=== PATIENT | male | born 1995 | race Caucasian/White ===

== ENCOUNTER 2017-12-20 11:33 | Emergency (ER) | payer MEDICAID ==
[2017-12-20 11:43] VITALS: BP 127/70
--- NOTE | 2017-12-20 12:19 | ED Physician Documentation ---
PD HPI ABD PAIN - Stated complaint Stated Complaint: TOOTH/GUM PX, STOMACH PX - Chief complaint Chief Complaint: Abd Pain - History obtained from History obtained from: Patient - History of Present Illness Timing - onset: Other (This is a young man who just moved up from [place] to be in homeless care home for youth with multiple complaints. First and foremost all of his teeth hurt, this is not new. He is trying to get in with the dentist. Secondly he just got out of a psychiatric facility and his prescription for gabapentin, 300 mg twice daily for anxiety with stolen. Third for the last week or so he has had on and off epigastric pain that is worse in the morning without vomiting or diarrhea, he has been constipated.) Review of Systems Constitutional: denies: Fever, Chills Nose: denies: Rhinorrhea / runny nose, Congestion Cardiac: denies: Chest pain / pressure, Palpitations Respiratory: denies: Dyspnea, Cough GI: denies: Nausea, Vomiting, Diarrhea, Hematemesis, Bloody / black stool PD PAST MEDICAL HISTORY - Present Medications Home Medications: Ambulatory Orders Medication Instructions Recorded Confirmed Amoxicillin 500 mg PO TID #30 capsule 12/20/17 Chlorhexidine Gluconate [Peridex] 10 ml MM QID #500 ml 12/20/17 Gabapentin 12/20/17 Gabapentin 300 mg PO BID #28 capsule 12/20/17 Omeprazole [PriLOSEC] 20 mg PO DAILY #14 capsule 12/20/17 - Allergies Allergies/Adverse Reactions: Allergies Allergy/AdvReac Type Severity Reaction Status Date / Time No Known Drug Allergies Allergy Verified 12/20/17 11:42 PD ED PE NORMAL - Vitals Vital signs reviewed: Yes - General General: Alert and oriented X 3, No acute distress - HEENT HEENT: Other (All of his upper teeth are carious around the gumline, there is no facial swelling or tenderness. There is no trismus.) - Cardiac Cardiac: RRR, No murmur - Respiratory Respiratory: No respiratory distress, Clear bilaterally - Abdomen Abdomen: Normal bowel sounds, Soft, Non tender - Neuro Neuro: Alert and oriented X 3, Normal speech - Psych Psych: Normal mood, Normal affect Results - Vitals Vitals: Vital Signs - 24 hr 12/20/17 11:40 Temperature 36.6 C Heart Rate 75 Respiratory 16 Rate Blood Pressure 127/70 O2 Saturation 100 Oxygen O2 Source Room air Departure - Departure Disposition: Home, Self Care Clinical Impression: Chronic dental pain, Epigastric pain, Anxiety Condition: Good Record reviewed to determine appropriate education?: Yes Instructions: ED PUD Vs Gastritis Prescriptions: Amoxicillin 500 mg PO TID #30 capsule Chlorhexidine Gluconate [Peridex] 10 ml MM QID #500 ml Gabapentin 300 mg PO BID #28 capsule Omeprazole [PriLOSEC] 20 mg PO DAILY #14 capsule Comments: Call your doctor to arrange a follow-up appointment, make the next available appointment. In the interim, return anytime if worse or if new symptoms develop. It is very important that you follow-up with a dentist. When it comes to dental problems like yours, the emergency department can only offer a short- term solution to your long-term problem. A couple of low cost options for dental care include: [facility] in [place], calls [phone] for an appointment Or [facility] in [place], call [phone] for an appointment.
== END 2017-12-20 12:20 | disposition home or self-care (01) ==
LOC: ED 11:33
DX: K08.89 Other specified disorders of teeth and supporting structures (principal); R10.13 Epigastric pain; F41.9 Anxiety disorder, unspecified; Z59.0 Homelessness
CPT/HCPCS: 99283

== ENCOUNTER 2018-01-28 23:28 | Emergency (ER) | payer MEDICAID ==
[2018-01-28] MEDS ORDERED: DICYCLOMINE 10 MG CAPSULE PO STA (23:34)
[2018-01-28] MEDS ORDERED: LOPERAMIDE 2 MG CAPSULE PO STA (23:34)
[2018-01-28] MEDS ORDERED: ONDANSETRON ODT 4 MG TABLET TL STA (23:34)
[2018-01-28 23:35] VITALS: BP 131/82
--- NOTE | 2018-01-28 23:46 | ED Physician Documentation ---
PD HPI NVD - Stated complaint Stated Complaint: - Chief complaint Chief Complaint: Abd Pain - History obtained from History obtained from: Patient - History of Present Illness Timing - onset: Yesterday Timing - details: Gradual onset, Still present Associated symptoms: Abdominal pain Contributing factors: Sick contact, Bad food Worsened by: Eating Similar symptoms before: No diagnosis Recently seen: Not recently seen - Additonal information Additional information: patient is a 22 year old presenting to the emergency department for nausea, vomiting and diarrhea. patient lives in a home for youth. He states his roommate was sick and also that he was eating bread. Patient does have an ABDULAZIZ saying that he has multiple ED visits and often is malingering. Review of Systems Ten Systems: 10 systems reviewed and negative Constitutional: reports: Fever, Chills GI: reports: Abdominal Pain, Nausea, Vomiting, Diarrhea PD PAST MEDICAL HISTORY - Present Medications Home Medications: Ambulatory Orders Medication Instructions Recorded Confirmed Amoxicillin 500 mg PO TID #30 capsule 12/20/17 Chlorhexidine Gluconate [Peridex] 10 ml MM QID #500 ml 12/20/17 Gabapentin 12/20/17 Gabapentin 300 mg PO BID #28 capsule 12/20/17 Omeprazole [PriLOSEC] 20 mg PO DAILY #14 capsule 12/20/17 Ondansetron Odt [Zofran] 4 mg TL Q6H PRN #14 tablet 01/28/18 - Allergies Allergies/Adverse Reactions: Allergies Allergy/AdvReac Type Severity Reaction Status Date / Time No Known Drug Allergies Allergy Verified 01/28/18 23:34 PD ED PE NORMAL - Vitals Vital signs reviewed: Yes - General General: Alert and oriented X 3, No acute distress - HEENT HEENT: Moist mucous membranes - Cardiac Cardiac: RRR - Respiratory Respiratory: No respiratory distress - Abdomen Abdomen: Soft, Non distended - Derm Derm: Normal color, Warm and dry - Extremities Extremities: No deformity - Neuro Neuro: Alert and oriented X 3 Eye Opening: Spontaneous Motor: Obeys Commands Verbal: Oriented GCS Score: 15 Results - Vitals Vitals: Vital Signs - 24 hr 01/28/18 23:33 Temperature 36.8 C Heart Rate 74 Respiratory 16 Rate Blood Pressure 131/82 H O2 Saturation 100 Oxygen O2 Source Room air PD MEDICAL DECISION MAKING - ED course Complexity details: reviewed old records, re-evaluated patient, considered differential, d/w patient ED course: Patient was seen and examined at bedside. patient was well appearing and in no distress. Patient was treated with zofran and loperamide. Patient was able to tolerate PO and was stable for discharge with outpatient follow up. Departure - Departure Disposition: Home, Self Care Clinical Impression: Gastroenteritis Condition: Good Instructions: ED Gastroenteritis Viral Follow-Up: primary,care provider [Other] - Within 3 Days Prescriptions: Ondansetron Odt [Zofran] 4 mg TL Q6H PRN #14 tablet PRN Reason: Nausea / Vomiting Comments: Your symptoms are likely viral in nature. You should take the zofran for nausea and stay well hydrated. You should drink gatorade, pedialyte or other electrolyte solution. You shoudl follow up with your doctor for further evaluation and care. Forms: Activity restrictions
== END 2018-01-29 00:39 | disposition home or self-care (01) ==
LOC: ED 23:28
DX: K52.9 Noninfective gastroenteritis and colitis, unspecified (principal)
CPT/HCPCS: 99283; A9270; Q0162

== ENCOUNTER 2018-06-10 15:30 | Emergency (ER) | payer MEDICAID ==
--- NOTE | 2018-06-10 15:48 | ED Physician Documentation ---
PD HPI URI - Stated complaint Stated Complaint: FLU SYMPTOMS - Chief complaint Chief Complaint: Resp - History obtained from History obtained from: Patient - History of Present Illness Timing - onset: Yesterday (he has had some cough and congestion for a week or so, and now with malaise, fever to 102, productive cough, and general malaise.) Timing details: Abrupt onset, Still present Associated symptoms: Fever, Nasal congestion, Productive cough. No: Hemoptysis, Dyspnea, NVD Contributing factors: COPD / asthma. No: Sick contact, Travel, Immunocompromised Similar symptoms before: Has not had sx before Recently seen: Not recently seen Review of Systems Constitutional: reports: Fever, Chills, Myalgias Nose: reports: Rhinorrhea / runny nose Throat: denies: Sore throat Respiratory: reports: Cough GI: reports: Nausea. denies: Vomiting, Diarrhea Skin: denies: Rash, Lesions Neurologic: reports: Generalized weakness. denies: Altered mental status, Headache PD PAST MEDICAL HISTORY - Past Medical History Cardiovascular: None Respiratory: None Neuro: None Endocrine/Autoimmune: None GI: None : None HEENT: None Psych: None Musculoskeletal: None Derm: None - Past Surgical History Past Surgical History: No - Present Medications Home Medications: Ambulatory Orders Medication Instructions Recorded Confirmed Amoxicillin 500 mg PO TID #30 capsule 12/20/17 Chlorhexidine Gluconate [Peridex] 10 ml MM QID #500 ml 12/20/17 Gabapentin 12/20/17 Gabapentin 300 mg PO BID #28 capsule 12/20/17 Omeprazole [PriLOSEC] 20 mg PO DAILY #14 capsule 12/20/17 Ondansetron Odt [Zofran] 4 mg TL Q6H PRN #14 tablet 01/28/18 Benzonatate [Tessalon] 100 mg PO TID PRN #25 capsule 06/10/18 Dexamethasone [Decadron] 4 mg PO DAILY #5 tablet 06/10/18 Doxycycline Monohydrate 100 mg PO BID #14 tablet 06/10/18 Ondansetron HCl [Zofran] 4 mg PO Q6H PRN #20 tablet 06/10/18 guaiFENesin/CODEINE [Robitussin AC] 10 ml PO Q6H PRN #240 ml 06/10/18 - Allergies Allergies/Adverse Reactions: Allergies Allergy/AdvReac Type Severity Reaction Status Date / Time No Known Drug Allergies Allergy Verified 06/10/18 15:37 - Social History Does the pt smoke?: Yes Smoking Status: Current every day smoker Does the pt drink ETOH?: No Does the pt have substance abuse?: No - Immunizations Immunizations are current?: Yes - POLST Patient has POLST: No PD ED PE NORMAL - Vitals Vital signs reviewed: Yes - General General: Alert and oriented X 3, No acute distress, Well developed/nourished - HEENT HEENT: Ears normal, Pharynx benign - Neck Neck: Supple, no meningeal sign, No adenopathy - Cardiac Cardiac: RRR, No murmur - Respiratory Respiratory: No: Clear bilaterally (some scattered wheezing. Congested sounds left base. ) - Abdomen Abdomen: Soft, Non tender - Derm Derm: Normal color, Warm and dry - Extremities Extremities: No tenderness to palpate, Normal ROM s pain, No edema, No calf tenderness / cord - Neuro Neuro: Alert and oriented X 3, No motor deficit, Normal speech Results - Vitals Vitals: Oxygen O2 Source Room air - Labs Labs: Laboratory Tests 06/10/18 15:38 Influenza A (Rapid) Negative Influenza B (Rapid) Negative - Rads (name of study) chest xray Radiology: Prelim report reviewed (no infiltrates; normal chest xray) PD MEDICAL DECISION MAKING - ED course Complexity details: reviewed results (chest xray without infiltrates. ), considered differential (he is smoker and has had URI/cough with worsening and now productive sputum. CXR clear but sounding like clinically early pneumonia. ), d/w patient - Sepsis Event Vital Signs: Oxygen O2 Source Room air Departure - Departure Disposition: 01 Home, Self Care Clinical Impression: Upper respiratory infection Qualifiers: URI type: unspecified URI Qualified Code(s): J06.9 - Acute upper respiratory infection, unspecified Condition: Stable Record reviewed to determine appropriate education?: Yes Instructions: ED Upper Resp Infec Abx Tx Prescriptions: Benzonatate [Tessalon] 100 mg PO TID PRN #25 capsule PRN Reason: Cough Dexamethasone [Decadron] 4 mg PO DAILY #5 tablet Doxycycline Monohydrate 100 mg PO BID #14 tablet guaiFENesin/CODEINE [Robitussin AC] 10 ml PO Q6H PRN #240 ml PRN Reason: Cough Ondansetron HCl [Zofran] 4 mg PO Q6H PRN #20 tablet PRN Reason: Nausea / Vomiting Comments: Drink lots of fluids. Use Decadron steroid for inflammation of the airways. O ndansetron if needed for nausea and vomiting. Tessalon and cough medicine as needed for the cough. Doxycycline for possible bacterial cause of the bronchitis. Recheck if not improving over the next few days. Forms: Activity restrictions Discharge Date/Time: 06/10/18 17:44
[2018-06-10] MEDS ORDERED: ALBUTEROL NEB 2.5 MG/3 ML INH STA (16:17)
[2018-06-10] MEDS ORDERED: BENZONATATE 100 MG CAPSULE PO STA (16:17)
[2018-06-10] MEDS ORDERED: ONDANSETRON ODT 4 MG TABLET TL STA (16:17)
[2018-06-10] MEDS ORDERED: DEXAMETHASONE 10 MG/ML VIAL PO STA (16:17)
--- NOTE | 2018-06-10 16:48 | XRAY Report ---
Reason: cough and fever, chest congestion Procedure Date: 06/10/2018 Accession Number: [id number] / [id number] Procedure: XR - Chest 2 View X-Ray CPT Code: 00823 FULL RESULT: EXAM: CHEST RADIOGRAPHY EXAM DATE: 06/10/2018 04:25 PM. CLINICAL HISTORY: Cough and fever, chest congestion. COMPARISON: None. TECHNIQUE: 2 views. FINDINGS: Lungs/Pleura: No focal opacities evident. No pleural effusion. No pneumothorax. Normal volumes. Mediastinum: Heart and mediastinal contours are unremarkable. Other: None. IMPRESSION: Negative chest. RAD[facility]
[2018-06-10 17:44] VITALS: BP 125/74
== END 2018-06-10 17:44 | disposition home or self-care (01) ==
LOC: ED 15:30
DX: F17.200 Nicotine dependence, unspecified, uncomplicated (principal); J06.9 Acute upper respiratory infection, unspecified; R11.0 Nausea
CPT/HCPCS: 71046; 87275; 87276; 94640; 99282; 99283; A9270; Q0162

== ENCOUNTER 2019-05-22 09:50 | Emergency (ER) | payer MEDICAID, OTHER ==
[2019-05-22 10:02] VITALS: BP 130/89
[2019-05-22] MEDS ORDERED: IBUPROFEN 800 MG TABLET PO STA (11:49)
--- NOTE | 2019-05-22 11:51 | ED Physician Documentation ---
PD HPI UPPER EXT INJURY - Stated complaint Stated Complaint: RT SHOULDER PX - Chief complaint Chief Complaint: Ext Problem - History obtained from History obtained from: Patient - History of Present Illness Location: Right, Shoulder Type of injury: Blunt / blow Where injury occurred: Work Timing - onset: How many hours ago (1) Similar symptoms before: Has not had sx before - Additonal information Additional information: The patient is a 24-year-old male who presents with right shoulder pain. 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 He has had pain in his shoulder since that t kaity, particularly with range of motion. He denies history of similar symptoms in the past. He is right-hand dominant. Review of Systems Constitutional: denies: Fever Cardiac: denies: Chest pain / pressure Respiratory: denies: Dyspnea GI: denies: Nausea, Vomiting Skin: denies: Abrasion (s) Musculoskeletal: reports: Extremity pain (right shoulder). denies: Neck pain Neurologic: denies: Focal weakness, Numbness, Headache PD PAST MEDICAL HISTORY - Past Medical History Cardiovascular: None Respiratory: None Neuro: None Endocrine/Autoimmune: None GI: None : None HEENT: None Psych: None Musculoskeletal: None Derm: None - Past Surgical History Past Surgical History: No - Present Medications Home Medications: Ambulatory Orders Medication Instructions Recorded Confirmed No Known Home Medications 05/22/19 05/22/19 - Allergies Allergies/Adverse Reactions: Allergies Allergy/AdvReac Type Severity Reaction Status Date / Time No Known Drug Allergies Allergy Verified 05/22/19 09:58 - Social History Does the pt smoke?: Yes Smoking Status: Current every day smoker Does the pt drink ETOH?: No Does the pt have substance abuse?: No - Immunizations Immunizations are current?: Yes - POLST Patient has POLST: No PD ED PE NORMAL - Vitals Vital signs reviewed: Yes (Borderline hypertension initially.) - General General: Alert and oriented X 3, Well developed/nourished - HEENT HEENT: Atraumatic, Other (Widespread dental decay.) - Neck Neck: No bony TTP - Cardiac Cardiac: RRR - Respiratory Respiratory: No respiratory distress, Clear bilaterally - Abdomen Abdomen: Soft, Non tender - Back Back: No spinal TTP - Derm Derm: No rash - Extremities Extremities: Other (.There is tenderness to palpation at the posterior superior aspect of the right shoulder. There is no tenderness over the anterior deltoid. He has full passive range of motion, but diminished active range of motion with elevation past 90 degrees. Distal neurovascular is intact.) - Neuro Neuro: Alert and oriented X 3, No motor deficit, No sensory deficit Results - Vitals Vitals: Vital Signs - 24 hr 05/22/19 09:56 Temperature 36.6 C Heart Rate 70 Respiratory 18 Rate Blood Pressure 130/89 H O2 Saturation 99 Oxygen O2 Source Room air - Rads (name of study) Right shoulder Radiology: Prelim report reviewed, EMP read contemporaneously, See rad report (Normal right shoulder radiography.) PD MEDICAL DECISION MAKING - ED course Complexity details: reviewed results, re-evaluated patient, considered differential, d/w patient ED course: The patient's presentation is most consistent with contusion to the right shoulder, with no evidence of acute bony abnormality on radiographic imaging. Treatment in the emergency department included administration of ibuprofen 800 mg orally. An arm sling was applied. An L&I form was completed. I discussed with the patient the expected course of injury, symptomatic treatment and outpatient follow-up, as well as potentially worrisome signs or symptoms that should prompt reevaluation in the emergency department. Departure - Departure Disposition: 01 Home, Self Care Clinical Impression: Right shoulder injury Qualifiers: Encounter type: initial encounter Qualified Code(s): S49.91XA - Unspecified injury of right shoulder and upper arm, initial encounter Condition: Stable Instructions: ED Contusion Shoulder Comments: Use the arm sling if it provides comfort. Apply ice pack intermittently for the next 3 or 4 days. You can use ibuprofen, up to 800 mg 3 times daily for anti-inflammatory effect. Let pain be your guide to activity level. Follow-up with primary physician or return to the emergency department if you develop increasing pain in your shoulder, or otherwise worsening symptoms. Forms: Activity restrictions
--- NOTE | 2019-05-22 12:25 | XRAY Report ---
Reason: right shoulder injury Procedure Date: 05/22/2019 Accession Number: [id number] / [id number] Procedure: XR - Shoulder 3 View RT CPT Code: FULL RESULT: EXAM: RIGHT SHOULDER RADIOGRAPHY EXAM DATE: 05/22/2019 12:09 PM. CLINICAL HISTORY: Right shoulder pain. COMPARISON: None. TECHNIQUE: 3 views. FINDINGS: Bones: Normal. No fracture or bone lesion. Joints: The glenohumeral and acromioclavicular joints are normal. Soft tissues: The visualized hemithorax is unremarkable. No soft tissue swelling. IMPRESSION: Normal shoulder radiography. RADIA
== END 2019-05-22 12:44 | disposition home or self-care (01) ==
LOC: ED 09:50
DX: S49.91XA Unspecified injury of right shoulder and upper arm, initial encounter (principal); W20.8XXA Other cause of strike by thrown, projected or falling object, initial encounter; Y93.89 Activity, other specified; Y99.0 Civilian activity done for income or pay; F17.200 Nicotine dependence, unspecified, uncomplicated
CPT/HCPCS: 1040M; 73030; 99282; 99283; A9270